=== PATIENT | male | born 1975 | race Caucasian/White ===

== ENCOUNTER 2020-01-26 16:04 | Emergency (ER) | payer OTHER, SELFPAY ==
--- NOTE | ~2020-01-26 | CT_ITS ---
EXAMINATION: CT abdomen pelvis w con DATE: 01/26/2020 20:03 INDICATION: Right lower quadrant pain TECHNIQUE: Computed tomography (CT) of the abdomen and pelvis was performed with 100 cc Omnipaque 350 intravenous contrast. The dose-length product was 890.40 mGy-cm. Automated exposure control and iter ative reconstruction technique were employed. COMPARISON: No prior studies for comparison. . FINDINGS: Lung bases are unremarkable. Heart size is normal. No significant pleural or pericardial ef fusion. There is a small subcentimeter hypodensity of the right hepatic lobe, most likely benign. The spleen, pancreas, adrenal glands and kidneys are unremarkable. Gallbladder is present. Normal append ix. There is grade 1 spondylolisthesis at L5-S1 secondary to spondylolysis. No free air or free fluid . Gallbladder is present. No abnormal pelvic masses or fluid collections. No significant vascular abn ormality. No lymphadenopathy. Small fat-containing umbilical hernia. IMPRESSION: 1. No acute abnormality of the abdomen. Reviewed, dictated and finalized at location A. VE SEPARATOR
[2020-01-26 16:18] VITALS: BP 147/86; PULSE 77; RESP 16; TEMP 36.9; O2SAT 97
[2020-01-26 16:39] LABS: Basophils Percent Auto 0.2 % (0.2-1.2); Eosinophils Absolute Auto 0.1 K/mm3 (0-0.3); Eosinophils Percent Auto 1.3 % (0-4.4); Hematocrit 44.2 % (42.0-52.0); Hemoglobin 15.6 g/dL (14.0-18.0); Immature Granulocyte Absolute 0.01 K/mm3 (0.00-0.031); Immature Granulocyte Percent A 0.2 % (0-0.5); Lymphocytes Absolute Auto 1.81 K/mm3 (0.9-3.2); Lymphocytes Percent Auto 34.3 % (18.3-44.2); Mean Corpuscular HGB Conc 35.3 g/dl (32-36); Mean Corpuscular Hemoglobin 33.1 pg (26-34); Mean Corpuscular Volume 93.8 fl (80-100); Mean Platelet Volume 9.5 fl (7.4-10.4); Monocytes Absolute Auto 0.5 K/mm3 (0.1-0.6); Monocytes Percent Auto 9.5 % (2.6-8.5); Neutrophils Absolute Auto 2.9 K/mm3 (1.3-6.7); Neutrophils Percent Auto 54.5 % (45.5-73.1); Platelet Count Result 165 k/mm3 (150-375); Red Blood Count 4.71 M/mm3 (4.6-6.20); Red Cell Distribution Width 12.2 % (11.5-14.5); White Blood Count 5.3 K/mm3 (4.5-10.0)
[2020-01-26 16:41] LABS: Add Urine Microscopic? NO; Appearance Urine Clear (Clear); Bilirubin Urine Negative (Negative); Blood Urine Negative (Negative); Color Urine Yellow (Yellow); Glucose Urine UA Negative (Negative); Ketones Urine Negative (Negative); Leukocyte Esterase Ur Negative LEU/UL (Negative); Nitrate Urine Negative (Negative); Protein Urine Negative (Negative); Specific Grav Ur 1.024 (1.001-1.035); Urobilinogen Urine Negative mg/dL (<2.0)
[2020-01-26 16:49] LABS: Alanine Aminotransferase 34 U/L (4-50); Albumin Level 4.4 g/dL (3.5-5.1); Alkaline Phosphatase 71 U/L (38-126); Anion Gap 6 mmol/L (8-16); Aspartate Amino Transferase 37 U/L (17-59); Blood Urea Nitrogen 19 mg/dL (9-20); Calcium 9.7 mg/dL (8.4-10.2); Carbon Dioxide 29 mmol/L (22-30); Chloride 103 mmol/L (98-107); Estimated CRCL calculation 88 ml/min; Estimated Glomerular Filt Rate > 60; Glucose 103 mg/dL (75-110); Lipase 104 U/L (23-300); Potassium 4.1 mmol/L (3.4-5.0); Sodium 138 mmol/L (137-145)
--- NOTE | 2020-01-26 18:07 | ED.ABDPAIN ---
HPI - Abdominal Pain General Chief Complaint: Abdominal Pain Stated Complaint: abd pain Time Seen by Provider: 01/26/20 17:39 Source: patient Mode of arrival: ambulatory Limitations: no limitations History of Present Illness HPI narrative: This is a 44 year old male that presents to the ER for right sided abdominal pain x 1 week. Reports is dull in nature and intermittently sharp. Associated with some bloating. Denies fever, nausea, vomiting, dysuria, hematuria. Related Data Allergies Allergy/AdvReac Type Severity Reaction Status Date / Time No Known Allergies Allergy Verified 01/26/20 17:34 Review of Systems Review of Systems: Narrative: CONSTITUTIONAL: Denies fever GASTROINTESTINAL: Reports abdominal pain. Denies nausea, vomiting, or diarrhea. GENITOURINARY: Denies dysuria or hematuria. All systems reviewed & are unremarkable except as noted in HPI and below PMFSH Past Medical History Medical History (Updated 01/26/20 @ 20:32 by Estela Stern PA-C) History of gastroesophageal reflux (GERD) Social History Social History (Updated 01/26/20 @ 18:09 by Estela Stern PA-C) Substance use: never Exam Narrative: Exam Narrative: GENERAL: Well-appearing, well-nourished, and in no acute distress. HEAD: Normocephalic, atraumatic. EYES: EOMI. CHEST: Clear to auscultation. No respiratory distress. No wheezes rales or rhonchi HEART: Regular rate and rhythm. No murmur heard. Normal peripheral pulses. ABDOMEN: Soft, nondistended, normal active bowel sounds. Tender to palpation in the right lower quadrant, without guarding. No CVA tenderness EXTREMITIES: Normal range of motion. No edema. SKIN: Warm, dry, no rash. NEURO: No focal deficits. Alert and oriented x3. PSYCH: Normal mood and affect Course Vital Signs Vital signs: Vital Signs Temperature 98.4 F 01/26/20 16:18 Pulse Rate 77 01/26/20 16:18 Respiratory Rate 16 01/26/20 16:18 Blood Pressure 147/86 H 01/26/20 16:18 Pulse Oximetry 97 01/26/20 16:18 Temperature 98.4 F 01/26/20 16:18 Pulse Rate 62 01/26/20 20:06 Respiratory Rate 16 01/26/20 16:18 Blood Pressure 139/92 H 01/26/20 20:06 Pulse Oximetry 98 01/26/20 20:06 MDM - Abdominal Pain MDM Narrative Medical decision making narrative: Patient presents the emergency department for right lower quadrant pain intermittent over the last week. He is afebrile and nontoxic-appearing. CBC and metabolic panel without concerning findings. UA is without evidence of infection. CT scan of the abdomen and pelvis is without acute findings. Patient was updated on case findings. He is stable and felt appropriate for the outpatient evaluation. He was given warnings to return to the ER Lab Data Attestation: I reviewed the patient's lab results. Result diagrams: 01/26/20 16:28 01/26/20 16:28 Labs: Lab Results 01/26/20 01/26/20 01/26/20 Range/Units 16:28 16:28 16:28 WBC 5.3 (4.5-10.0) K/mm3 RBC 4.71 (4.6-6.20) M/mm3 Hgb 15.6 (14.0-18.0) g/dL Hct 44.2 (42.0-52.0) % MCV 93.8 (80-100) fl MCH 33.1 (26-34) pg MCHC 35.3 (32-36) g/dl RDW 12.2 (11.5-14.5) % Plt Count 165 (150-375) k/mm3 MPV 9.5 (7.4-10.4) fl Immature Gran % (Auto) 0.2 (0-0.5) % Neut % (Auto) 54.5 (45.5-73.1) % Lymph % (Auto) 34.3 (18.3-44.2) % [place] % (Auto) 9.5 H (2.6-8.5) % Eos % (Auto) 1.3 (0-4.4) % Baso % (Auto) 0.2 (0.2-1.2) % Lymph # (Auto) 1.81 (0.9-3.2) K/mm3 [place] # (Auto) 0.5 (0.1-0.6) K/mm3 Eos # (Auto) 0.1 (0-0.3) K/mm3 Baso # (Auto) 0.0 (0.0-0.1) K/mm3 Abs Immat Gran (auto) 0.01 (0.00-0.031) K/mm3 Absolute Neuts (auto) 2.9 (1.3-6.7) K/mm3 Absolute Nucleated RBC 0.0 (0.0-0.012) K/mm3 Nucleated RBC % 0.0 (0.0-0.2) % Sodium 138 (137-145) mmol/L Potassium 4.1 (3.4-5.0) mmol/L Chloride 103 (98-107) mmol/L Carbon Dioxide 29 (22-30) mmol/L Anion
[2020-01-26 20:06] VITALS: BP 139/92; PULSE 62; O2SAT 98
== END 2020-01-26 20:49 | disposition home or self-care (01) ==
PROVIDERS: Emergency Medicine; Emergency Provider Emergency Medicine; PCP Internal Medicine
DX: R10.31 Right lower quadrant pain (principal); K21.9 Gastro-esophageal reflux disease without esophagitis
CPT/HCPCS: 36415; 74177; 80053; 81003; 83690; 85025; 99284; Q9967